=== PATIENT | male | born 1995 | race Caucasian/White ===

== ENCOUNTER → 2021-06-01 | Outpatient (REF) ==
--- NOTE | 2021-06-01 09:53 | REP ---
INDICATION: BACK AND HIP INJURY. COMPARISON: None. TECHNIQUE: Two views of the pelvis FINDINGS: Osseous structures, joint spaces, and surrounding soft tissues including bilateral hips appear relatively normal. No evidence for acute fracture or dislocation. IMPRESSION: No acute fracture or dislocation. No significant degenerative changes. <Electronically signed by Shorty Carey > 06/01/21 0949
== END ==
LOC: M PLAIMG 08:33
PROVIDERS: ATTEND Internal Medicine
DX: Z00.00 Encounter for general adult medical examination without abnormal findings (principal)